=== PATIENT | male | born 1995 | race Caucasian/White ===

== ENCOUNTER → 2021-02-07 | Outpatient (CLI) | payer OTHER ==
--- NOTE | 2021-02-07 15:08 | US ---
EXAMINATION TYPE: US abdomen complete DATE OF EXAM: 02/07/2021 COMPARISON: NONE CLINICAL HISTORY: R10.11 Right Upper Quadrant Pain. EXAM MEASUREMENTS: Liver Length: 15.4 cm Gallbladder Wall: 0.2 cm CBD: 0.1 cm Spleen: 11.4 cm Right Kidney: 11.6 x 4.3 x 5.6 cm Left Kidney: 10.9 x 5.6 x 4.9 cm Pancreas: Obscured by bowel gas Liver: attenuating, probable focal fatty sparing adjacent to gallbladder Gallbladder: wnl Evidence for sonographic Wagner's sign: no CBD: wnl Spleen: wnl Right Kidney: No hydronephrosis or masses seen Left Kidney: Inferior pole obscured by bowel gas, wnl as seen Upper IVC: wnl Abd Aorta: Partially obscured by overlying bowel gas, portions visualized wnl The visualized liver is heterogeneously hyperechoic. Evaluation for focal mass is suboptimal due to t he heterogeneity. No surrounding ascites. The intrahepatic portion of the IVC and visualized abdomina l aorta are within normal limits. There is no evidence of shadowing mobile cholelithiasis. Common b ile duct is unremarkable. The visualized portions of the pancreas are homogenous. The spleen is unr emarkable. Kidneys are symmetric and free of hydronephrosis. No renal lesions are seen on images sa anselmo. IMPRESSION: Heterogeneous hyperechoic appearance of the liver likely on the basis of diffuse fatty in filtration. No acute findings are evident.
== END ==
LOC: RADUSWWP 10:13
PROVIDERS: ATTEND Family Medicine
DX: R93.2 Abnormal findings on diagnostic imaging of liver and biliary tract (principal)
CPT/HCPCS: 76700